=== PATIENT | female | born 1955 | race Caucasian/White ===

== ENCOUNTER 2020-10-09 12:37 | Outpatient (REF) | payer MEDICARE, SELFPAY ==
--- NOTE | ~2020-10-09 | MM_ITS ---
EXAMINATION: MM SCREENING DIGITAL BREAST TOMOSYNTHESIS, BILATERAL CLINICAL INFORMATION: Screening. Asymptomatic. The lifetime risk of breast cancer based on the Tyrer-Cuzick Model is 4%. COMPARISON: Mammography: 05/29/2015 TECHNIQUE: Digital breast tomosynthesis is performed in both the craniocaudal and mediolateral oblique views along with computer-aided detection (CAD). Synthesized 2D images are generated from the tomosynthesis. Topical powder suspected by laboratory technologist at time of imaging. Patient asked to wash breasts at office prior to imaging. FINDINGS: There are scattered areas of fibroglandular density (ACR BI-RADS breast composition Category b). The parenchymal pattern is unremarkable. There is no interval mass or architectural abnormality or developing density. The axilla and skin contours are unremarkable. There are multiple punctate densities overlying the skin greatest posterior inferior left breast. These are consistent with the topical powder suspected at time of imaging. The artifacts are superficial, confirmed on the tomography sections. There are no abnormal calcifications seen in either breast. MM/MM tomosynthesis screening BI IMPRESSION: 1. No mammographic evidence of malignancy. 2. Punctate artifacts from topical outer bilateral breasts, more numerous on left. ASSESSMENT: BI-RADS 2: Benign RECOMMENDATION: Routine annual mammography screening. This patient's information was entered into a reminder system with a target due date for their next mammogram.
--- NOTE | ~2020-10-09 | MM_ITS ---
EXAMINATION: BONE DENSITOMETRY CLINICAL INDICATION: Postmenopausal. Rule out osteoporosis. COMPARISON: Previous BD dated 09/12/2015 and baseline BD dated 08/27/2006. TECHNIQUE: Using a [employer] DXA System (software version: 13.1) manufactured by [employer], dual-energy x-ray absorptiometry was performed of the lumbar spine and left hip. The images are of good technical quality. Summary results are attached. FINDINGS: AP SPINE L1-L4: Current: BMD 0.986 g/cm2, Z-score 0.1, T-score -1.6, osteopenia, 8.1% increase from previous, 2.3% decrease from baseline (<5% change is not significant). Prior: BMD 0.912 g/cm2. Baseline: BMD 1.009 g/cm2. LEFT FEMUR, NECK: Current: BMD 0.805 g/cm2, Z-score 0.0, T-score -1.7, osteopenia. Prior: BMD 0.780 g/cm2. Baseline: BMD 0.840 g/cm2. LEFT FEMUR, TOTAL: Current: BMD 0.856 g/cm2, Z-score 0.2, T-score -1.2, osteopenia, 0.7% increase from previous, 4.6% decrease from baseline (<5% change is not significant). Prior: BMD 0.850 g/cm2. Baseline: BMD 0.897 g/cm2. IDENTIFIED RISK FACTORS: None listed. HISTORY OF FRACTURE: None listed. MEDICATIONS: Calcium. MM/XR DEXA axial skeleton IMPRESSION: 1. DIAGNOSIS: Osteopenia based on the lowest T-score value of -1.7 in the femoral neck applying World Health Organization criteria. 2. 10-YEAR FRACTURE RISK PREDICTION, FRAX: Major osteoporotic fracture (clinical spine, forearm, hip or shoulder) 10.1%. Hip fracture 1.4%. 3. Treatment Recommendations: NOF guidelines recommend consideration for treatment in postmenopausal women and men age 50 and older presenting with the following: -A hip or vertebral (clinical or morphometric) fracture. -T-score less than or equal to -2.5 at the femoral neck or spine after appropriate evaluation to exclude secondary causes. -Low bone mass at the hip or spine and a 10-year fracture probability by FRAX of greater than or equal to 3% for hip fracture or greater than or equal to 20% for major osteoporotic fracture based on the [place] adapted WHO algorithm. 4. Other Recommendations: All treatment decisions require clinical judgment and consideration of individual patient factors, including patient preferences, comorbidities, previous drug use, risk factors not captured in the FRAX model (e.g. frailty, falls, vitamin D deficiency, increased bone turnover, interval significant decline in bone density) and possible under or overestimation of fracture risk by FRAX. Additional medical evaluation for secondary cause of low bone mineral density may be appropriate. FUTURE SCAN RECOMMENDATION: People with diagnosed cases of osteoporosis or at high risk for fracture should have regular bone mineral density tests. For patients eligible for Medicare, routine testing is allowed once every 2 years. The testing frequency can be increased to one year for patients who have rapidly progressing disease, those who are receiving or discontinuing medical therapy to restore bone mass, or have additional risk factors.
== END 2020-10-09 12:38 | disposition home or self-care (01) ==
LOC: HO.MAMMO 12:37
PROVIDERS: PCP Internal Medicine; Visit Provider Internal Medicine
DX: Z12.31 Encounter for screening mammogram for malignant neoplasm of breast (principal); Z13.820 Encounter for screening for osteoporosis; Z78.0 Asymptomatic menopausal state
CPT/HCPCS: 77063; 77067; 77080

== ENCOUNTER 2021-08-05 11:13 | Outpatient (REF) | payer MEDICARE, SELFPAY ==
--- NOTE | ~2021-08-05 | XR_ITS ---
EXAMINATION: XR CERVICAL SPINE CLINICAL INFORMATION: Pain base of neck. COMPARISON: None TECHNIQUE: 3 views of the cervical spine were obtained. FINDINGS: There is reversal cervical lordosis. Vertebral bodies are normal in height. There is no vertebral compression, prevertebral soft tissue swelling, or destructive process. There are degenerative disc changes at C5-C6 with disc narrowing and endplate sclerosis and vertebral spurring. There is borderline retrolisthesis at this level likely related to the degenerative changes. There is no perched facet. No cervical rib. There are lesser degenerative disc changes at C4-C5. The odontoid appears intact. XR/XR cervical spine 3V IMPRESSION: Degenerative disc changes greatest at C5-C6 with associated vertebral spurring and borderline retrolisthesis. Reversal cervical lordosis.
== END 2021-08-05 11:14 | disposition home or self-care (01) ==
LOC: HO.HMGCX 11:13
PROVIDERS: PCP Internal Medicine; Visit Provider Internal Medicine
DX: M54.2 Cervicalgia (principal)
CPT/HCPCS: 72040

== ENCOUNTER 2023-10-06 09:55 | Outpatient (REF) | payer MEDICARE, SELFPAY ==
--- NOTE | ~2023-10-06 | MM_ITS ---
EXAMINATION: MM SCREENING DIGITAL BREAST TOMOSYNTHESIS, BILATERAL CLINICAL INFORMATION: Screening. Asymptomatic. COMPARISON: Mammography: This study is compared with prior exams dating back to 2015. TECHNIQUE: Digital breast tomosynthesis is performed in both the craniocaudal and mediolateral oblique views along with computer-aided detection (CAD). Synthesized 2D images are generated from the tomosynthesis. FINDINGS: There are scattered areas of fibroglandular density (ACR BI-RADS breast composition Category b). There are no significant masses, abnormal calcifications, or other abnormalities. MM/MM tomosynthesis screening BI IMPRESSION: No mammographic evidence of malignancy. ASSESSMENT: BI-RADS BI-RADS 1 - Negative RECOMMENDATION: Routine annual mammography screening. 1 year F/U This examination should not preclude the clinical evaluation of a suspicious palpable abnormality. This patient's information was entered into a reminder system with a target due date for their next mammogram.
--- NOTE | ~2023-10-06 | MM_ITS ---
EXAMINATION: BONE DENSITOMETRY CLINICAL INDICATION: Post menopausal. COMPARISON: Previous BD dated 10/09/2020 and baseline BD dated 08/27/2006. TECHNIQUE: Using a [employer] DXA System (software version: 13.1) manufactured by [employer], dual-energy x-ray absorptiometry was performed of the lumbar spine and left hip. The images are of good technical quality. Summary results are attached. FINDINGS: AP SPINE L1-L4: Current: BMD 0.952 g/cm2, Z-score -0.1, T-score -1.9, osteopenia, 3.4% decrease from previous, 5.6% decrease from baseline (<5% change is not significant). Prior: BMD 0.986 g/cm2. Baseline: BMD 1.009 g/cm2. LEFT FEMUR, NECK: Current: BMD 0.844 g/cm2, Z-score 0.4, T-score -1.4, osteopenia. Prior: BMD 0.805 g/cm2. Baseline: BMD 0.840 g/cm2. LEFT FEMUR, TOTAL: Current: BMD 0.887 g/cm2, Z-score 0.6, T-score -1.0, normal, 3.6% increase from previous, 1.1% decrease from baseline (<5% change is not significant). Prior: BMD 0.856 g/cm2. Baseline: BMD 0.897 g/cm2. IDENTIFIED RISK FACTORS: Menopause. HISTORY OF FRACTURE: None listed. MEDICATIONS: Calcium supplement and/or multivitamin. MM/XR DEXA axial skeleton IMPRESSION: 1. DIAGNOSIS: Osteopenia based on the lowest T-score value of -1.9 in the lumbar spine applying World Health Organization criteria. 2. 10-YEAR FRACTURE RISK PREDICTION, FRAX: Major osteoporotic fracture (clinical spine, forearm, hip or shoulder) 9.9%. Hip fracture 1.4%. 3. Treatment Recommendations: NOF guidelines recommend consideration for treatment in postmenopausal women and men age 50 and older presenting with the following: -A hip or vertebral (clinical or morphometric) fracture. -T-score less than or equal to -2.5 at the femoral neck or spine after appropriate evaluation to exclude secondary causes. -Low bone mass at the hip or spine and a 10-year fracture probability by FRAX of greater than or equal to 3% for hip fracture or greater than or equal to 20% for major osteoporotic fracture based on the [place] adapted WHO algorithm. 4. Other Recommendations: All treatment decisions require clinical judgment and consideration of individual patient factors, including patient preferences, comorbidities, previous drug use, risk factors not captured in the FRAX model (e.g. frailty, falls, vitamin D deficiency, increased bone turnover, interval significant decline in bone density) and possible under or overestimation of fracture risk by FRAX. Additional medical evaluation for secondary cause of low bone mineral density may be appropriate. FUTURE SCAN RECOMMENDATION: People with diagnosed cases of osteoporosis or at high risk for fracture should have regular bone mineral density tests. For patients eligible for Medicare, routine testing is allowed once every 2 years. The testing frequency can be increased to one year for patients who have rapidly progressing disease, those who are receiving or discontinuing medical therapy to restore bone mass, or have additional risk factors.
== END 2023-10-06 09:56 | disposition home or self-care (01) ==
LOC: HO.MAMMO 09:55
PROVIDERS: PCP Internal Medicine; Visit Provider Internal Medicine
DX: Z12.31 Encounter for screening mammogram for malignant neoplasm of breast (principal); Z13.820 Encounter for screening for osteoporosis; Z78.0 Asymptomatic menopausal state
CPT/HCPCS: 77063; 77067; 77080

== ENCOUNTER → 2023-10-06 10:30 | Outpatient (BNV) | payer MEDICARE, SELFPAY | PROVIDERS: PCP Internal Medicine; Visit Provider Radiology Diagnostic Radiology | DX: Z12.31 Encounter for screening mammogram for malignant neoplasm of breast (principal) | CPT/HCPCS: 77063; 77067 ==

== ENCOUNTER 2024-03-27 13:21 | Outpatient (REF) | payer MEDICARE, SELFPAY ==
--- NOTE | ~2024-03-27 | XR_ITS ---
EXAMINATION: XR ABDOMEN COMPLETE CLINICAL INDICATION: Constipation COMPARISON: None available. TECHNIQUE: 2 views of the abdomen. FINDINGS: The bowel gas pattern is normal with no evidence of ileus or obstruction. No unusual soft tissue calcifications are noted. The bones are unremarkable. XR/XR abdomen min 2V IMPRESSION: Unremarkable examination. Electronically signed by: Clau Vernon MD 03/28/2024 07:57 PM EDT RP
== END 2024-03-27 13:22 | disposition home or self-care (01) ==
LOC: HO.HMGCX 13:21
PROVIDERS: PCP Internal Medicine; Visit Provider Internal Medicine
DX: R10.9 Unspecified abdominal pain (principal); K59.00 Constipation, unspecified
CPT/HCPCS: 74019

== ENCOUNTER 2024-12-04 07:16 | Day surgery (SDC) | payer MEDICARE, SELFPAY ==
[2024-11-30 13:54] VITALS: BMI 24.9
--- NOTE | 2024-12-04 07:28 | P.CONAN_ITS ---
[facility] Past Medical History Medical History Elevated cholesterol Surgical History Surgical History Surgical history unknown History of Problems with Anesthesia: No Social History Social History Household Members: Spouse Patient Tobacco Use Status: Former Tobacco user Meds Allergies Allergy/AdvReac Type Severity Reaction Status Date / Time No Known Allergies Allergy Verified 12/04/24 07:35 Active Medications: Current Medications Sodium Biphosphate/Sodium Phosphate (Sodium Phosphate,[place]ayette-Dibasic 133 Ml Enema) 133 ml AK ONCE PRN PRN Reason: Poor Colonoscopy Prep Results Home Medications ?Medication ?Instructions ?Recorded ?Confirmed ?Last Taken ?Type atorvastatin 40 mg tablet 40 mg PO DAILY 11/30/24 11/30/24 Unknown History calcium carbonate 600 mg PO DAILY 11/30/24 11/30/24 Unknown History lorazepam 0.5 mg tablet 0.5 mg PO DAILY PRN Anxiety 11/30/24 11/30/24 Unknown History polyethylene glycol 3350 17 gram 17 g PO DAILY 11/30/24 11/30/24 Unknown History oral powder packet (Miralax) Exam Height,Weight and Vital Signs: Height 5 ft 2 in Weight 61.689 kg Airway Mallampati Class: II TM Dist: >3cm Neck ROM: Full Denture: Upper Loose/Missing/Broken Teeth: Yes and Upper Heart: RRR Lungs: CTA Assessment and Plan Assessment Anesthesia Assessment: Anesthesia Plan Discussed and Chart Reviewed Final Anesthetic Review History of Problems with Anesthesia: No NPO: Yes ASA Class: II Final Preanesthetic Review: Meds/Allgs Chart Reviewed, Consent Obtained/Reviewed and Anes Risks/Benef Reviewed Patient Risk: Low Procedure Risk: Low Anesthetic Plan Anesthetic Plan: MAC: Disposition: Standard PACU
[2024-12-04 07:35] VITALS: BMI 24.6
[2024-12-04] MEDS: Lactated Ringers 1,000 ML 80 ML IVCONT (07:41)
[2024-12-04 07:43] VITALS: BP 144/81; PULSE 83; RESP 18; TEMP 36.8; O2SAT 98
[2024-12-04 09:30] VITALS: BP 83/60; PULSE 62; RESP 18; TEMP 36.4; O2SAT 98
--- NOTE | 2024-12-04 09:34 | PM.OP ---
Brief Operative Note Date of Service: 12/04/24 Pre-op diagnosis: Screening Post-op diagnosis: other (Rectal polyp) Procedure: Colonoscopy to the cecum and TI with cold snare polypectomy x 1 Surgeon: Cedrick Brown MD Anesthesia: MAC Was an Health Insurance Sales Agent used for this Procedure?: No Estimated blood loss (mL): 2.0 Pathology: other (A. Rectal polyp) Condition: stable Disposition: PACU
[2024-12-04 09:35] VITALS: BP 86/52
[2024-12-04 09:40] VITALS: BP 87/54
[2024-12-04 09:45] VITALS: BP 97/57; PULSE 62; RESP 18; TEMP 36.4; O2SAT 96
[2024-12-04 10:00] VITALS: BP 107/62; PULSE 59; RESP 18; TEMP 36.3; O2SAT 98
--- NOTE | 2024-12-04 10:11 | OP_ITS ---
DATE OF SERVICE: 12/04/2024 SURGEON: Cedrick Brown MD INDICATIONS: The patient presents for evaluation of colorectal cancer screening. Full consent has been obtained from her for this, including risks of bleeding and perforation. PREOPERATIVE DIAGNOSIS: Colorectal cancer screening. POSTOPERATIVE DIAGNOSIS: PROCEDURE PERFORMED: Colonoscopy to the cecum and terminal ileum with cold snare polypectomy x1. ESTIMATED BLOOD LOSS: COMPLICATIONS: ANESTHESIA: Medication used, monitored anesthesia care. ASSISTANTS: SPECIMENS: POSTOPERATIVE DIAGNOSES: Colorectal cancer screening, small rectal polyp, diverticulosis, and internal hemorrhoids. DESCRIPTION OF PROCEDURE: The patient was placed in the left lateral decubitus position. The digital rectal exam revealed no abnormalities. The Olympus video pediatric colonoscope was entered into the rectum and advanced easily to the cecum. Once in the cecum, I did identify normal-appearing cecal pouch with appendiceal orifice and a normal-appearing ileocecal valve. The terminal ileum was cannulated and appeared normal. The scope was withdrawn back in the colon. The entire cecum and ileocecal valve appeared normal. The scope was slowly withdrawn assessing all mucosal surfaces carefully. Preparation was excellent. There was a mild amount of diverticulosis in the ascending and descending colon. There was a mild to moderate amount of diverticulosis in the sigmoid colon. I did not visualize any sign of colitis nor angiodysplasia. The only polyp I visualized was in the rectum. This was approximately 5 or 6 mm in diameter and was removed by cold snare polypectomy and recovered by suction. The polypectomy site appeared clean, without any sign of residual polyp nor bleeding. The scope was retroflexed in the rectum visualizing internal hemorrhoids as well. The scope was straightened and withdrawn from the patient. She tolerated the procedure well and was returned to the recovery area in stable condition. IMPRESSION: 1. Rectal polyp. 2. Diverticulosis. 3. Internal hemorrhoids. PLAN: The results of the pathology will be checked. Given the minimal findings and her age, I do not think she would need any further colonoscopies even if the polyp is a tubular adenoma. She will otherwise see me on a p.r.n. basis. She was advised to continue her current regimen of Metamucil and MiraLAX in regard to the constipation. Cedrick Brown MD RMW/NAKIAL / [id number]
== END 2024-12-04 10:21 | disposition home or self-care (01) ==
PROVIDERS: PCP Internal Medicine; Visit Provider Internal Medicine
PROC: 0DJD8ZZ Inspection of Lower Intestinal Tract, Via Natural or Artificial Opening Endoscopic (ICD-10-PCS; CPT 45378; principal; 2024-12-04 08:30)
DX: Z12.11 Encounter for screening for malignant neoplasm of colon (principal); K62.1 Rectal polyp; K57.30 Diverticulosis of large intestine without perforation or abscess without bleeding; K64.8 Other hemorrhoids; K59.00 Constipation, unspecified; E78.00 Pure hypercholesterolemia, unspecified; Z87.891 Personal history of nicotine dependence; Z79.02 Long term (current) use of antithrombotics/antiplatelets; Z79.899 Other long term (current) drug therapy
CPT/HCPCS: 45385; 88305; J2003; J2704

== ENCOUNTER 2025-02-13 17:25 | Outpatient (AMB) | payer MEDICARE, SELFPAY ==
--- OUTSIDE RECORDS SUMMARY | 2025-02-13 17:27 | XMS_ITS | Patient Health Record ---
Author Organization [facility] Address [address] [place] [address] Care Team Providers Care Rv Detailer Name Role Phone William Brandt MD Primary Care Provider UnavailManolo Smith Unavailable [phone] Reason For Referral No Information Medications Medication SIG (Take, Route, Frequency, Duration) Notes Start Date End Date Status Multivitamin Active Night Splint AFO - L1930 as directed 04/30/2021 Active Caltrate 600+D Activ e Social History Tobacco Use: Social History Observation Description Date Details (start date - stop date) Former Smoker NA - NA Tobacco Use/Smoking Question Answer Notes Are you a: former smoker Additional Findings: Tobacco Non-User Current no n-smoker Alcohol Screen Question Answer Notes Did you have a drink containing alcohol in the p ast year? Yes Points 0 Interpretation Negative Tobacco use other than smoking: Question Answer Notes Are you an other tobacco user? No Plan Of Treatment Pending Test Test Name Order Date X ray : Foot, left 3V 01/15/2020 X ray : Foot, right 3V 01/15/2020 Insurance Providers Payer Name Payer Address Payer Phone Subscriber Number Group Number Insured Name Patient Relationship to Insured Coverage Start Date Coverage End Date [employer] [place] [employer] Advantage [address] [place] [address] [id number] Hailee Hernandez Self - patient is the insured Medical (General) History Medical History History ICD Code Broken bones Psoriasis/eczema Reflux ( GERD) sinusitis Chicken pox Seasonal allergies Surgical History Surgery Date(Month/Year)
--- NOTE | 2025-02-14 06:40 | A.OFFPC_ITS ---
Intake Visit Reasons: Establish Care Allergies No Known Allergies Allergy (Verified 02/14/25 06:41) Medication List - Last Reconciled 02/14/25 by Christopher Smith MD atorvastatin 40 mg PO DAILY calcium carbonate 600 mg PO DAILY lorazepam 0.5 mg PO DAILY PRN polyethylene glycol 3350 (Miralax) 17 grams PO DAILY HPI Establish Care HPI Details 69-year-old female wishes to discuss her medical health via telehealth. Patient is transferring her care from Dr. Brandt. She has history of high cholesterol and anxiety. Her 's sickness is contributing significantly to her anxiety. Patient takes a statin and occasional use of lorazepam. Able to function and do all activities of daily living. [facility] Medical History (Updated 02/14/25 @ 06:38 by Christopher Smith MD) Constipation Anxiety Elevated cholesterol Surgical History (Updated 02/14/25 @ 06:43 by Christopher Smith MD) History of colonoscopy (~12/04/24) Surgical history unknown Social History Household Members: Spouse Patient Tobacco Use Status: Former Tobacco user Questionnaire AUDIT C Alcohol Use Questionnaire (AUDIT-C) 1. How often do you have a drink containing alcohol?: Monthly or less 2. How many drinks containing alcohol do you have on a typical day when you are drinking?: 1 or 2 3. How often do you have six or more drinks on one occasion?: Never Total Score: 1 Physical exam (Primary Care) Tobacco/Smoking Status: Tobacco use Status Patient Tobacco Use Status Former Tobacco user 12/04/24 09:34 Telehealth Telehealth Telehealth Platform: Playbasis Location of provider rendering services: practice address Location of patient: address on file Patient Identification confirmed using: Name, : Yes Telehealth method: voice only Patient verbally consented to treatment: Yes Patient verbally consented to billing insurance company: Yes Patient informed of any privacy concerns related to visit: Yes Minutes spent on Phone/Video with Pt.: 15 Coding Level of Care Code Tele New Pt Level 4 (04393) Complex EM visit Add On G2211 Diagnoses Elevated cholesterol E78.00 Assessment & Plan Assessment & Plan (1) Elevated cholesterol: Code(s): E78.00 - Pure hypercholesterolemia, unspecified Category: Medical Plan: Fasting blood work has been ordered. Will call with the results. Orders: Orders Complete Blood Count no Diff Today E78.00 - Pure hypercholesterolemia, unspecified UA and rflx microscopic Today E78.00 - Pure hypercholesterolemia, unspecified Basic Metabolic Panel Today E78.00 - Pure hypercholesterolemia, unspecified Lipid Panel Today E78.00 - Pure hypercholesterolemia, unspecified Liver Panel Today E78.00 - Pure hypercholesterolemia, unspecified Thyroid Stimulating Hormone Today E78.00 - Pure hypercholesterolemia, unspecified
== END 2025-02-13 19:00 | disposition home or self-care (01) ==
LOC: HO.HMCSH 17:25
PROVIDERS: PCP Internal Medicine; Visit Provider Internal Medicine
DX: E78.00 Pure hypercholesterolemia, unspecified (principal)

== ENCOUNTER 2025-02-14 08:44 | Outpatient (REF) | payer MEDICARE, SELFPAY ==
--- OUTSIDE RECORDS SUMMARY | 2024-12-04 04:30 | XMS_ITS ---
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 ; Diverticulosis of large intestine without perforation or abscess without bleeding K57.30 and Other hemorrhoids K64.8 Assessments Encounter Date Diagnosis (ICD Code) Assessment Notes Treatment Notes Treatment Clinical Notes Section Notes 12/04/2024 Colon cancer screening (ICD-10 - Z12.11) 12/04/2024 Benign neoplasm of rectum (ICD-10 - D12.8) 12/04/2024 Diverticulosis of large intestine without perforation or abscess without bleeding (ICD-10 - K57.30) 12/04/2024 Other hemorrhoids (ICD-10 - K64.8) Plan Of Treatment No Information Progress Notes * KRISTEN FINKADOB:1955 ([age] yo F)Acc No.[id number]:12/04/2024 COLON WITH MAC Patient: ARAM DURAN Provider: Jimmie Brown MD :1955 A ge:69 Y S ex:Female Date:12/04/2024 Address[address] [id number] Pcp:William Brandt (RETIRED) MD Subjective: * Chief Complaints: * 1 . Screening. * Medical History: Objective: * Vitals: Assessment: * Assessment: 1. C olon cancer screening - Z12.11 (Primary) 2 . B enign neoplasm of rectum - D12.8 3 . D iverticulosis of large intestine without perforation or abscess without bleeding - K57.30 4 . O ther hemorrhoids - K64.8 Plan: * Treatment: * Procedure Codes: 4 5385 LESION REMOVAL COLONOSCOPY, Modifiers: PT * * The named appointment provid er may or may not be the originator of this progress note, and it is not deemed complete until electronically signed by the appointment provider. Sign off status: Pending * Provider: Jimmie Brown MD Date: 0 12/04/2024 Generated for Sonja molina/Miri/Hernandezitting on: 0 02/14/2025 08:58 AM EDT
--- OUTSIDE RECORDS SUMMARY | 2025-02-14 08:59 | XMS_ITS | Patient Health Record ---
Author Organization [facility] Address [address] [place] [address] Care Team Providers Care Refinery Operator Crude Unit Name Role Phone William Brandt MD Primary Care Provider UnavailManolo Smith Unavailable [phone] Reason For Referral No Information Medications Medication [...] [address] [place] [address] [id number] Hailee Hernandez Self - patient is the insured Medical (General) History Medical History History ICD Code Broken bones Psoriasis/eczema Reflux ( GERD) sinusitis Chicken pox Seasonal allergies Surgical History Surgery Date(Month/Year)
[2025-02-14 10:19] LABS: Hematocrit 42.2 % (37.0-47.0); Hemoglobin 14.2 g/dl (12.0-16.0); Mean Corpuscular HGB Conc 33.6 g/dl (31.0-35.0); Mean Corpuscular Hemoglobin 31.5 pg (27.0-33.0); Mean Corpuscular Volume 93.6 fL (80.0-98.0); NRBC Abs Auto 0.000 X10*3/uL (0.0-0.012); NRBC Pct Auto 0.0 /100WBC (0.0-0.2); Platelet Count 287 X10*3/uL (160-400); Red Blood Count 4.51 X10*6/uL (4.20-5.50); White Blood Count 6.1 X10*3/uL (4.8-10.8)
[2025-02-14 10:46] LABS: Appearance Urine Clear; Glucose Urine UA Negative (Negative); PH 6.5 (5.0-9.0); Specific Gravity - Urine 1.015 (1.005-1.025); UMIC TRIGGER UA YES
[2025-02-14 10:51] LABS: Alanine Aminotransferase 30 U/L (0-31); Albumin Level 4.1 g/dL (3.5-5.0); Alkaline Phosphatase 81 U/L (39-117); Anion Gap 9 (12-20); Aspartate Amino Transferase 30 U/L (5-31); Blood Urea Nitrogen 18 mg/dL (9-16); Calcium 9.1 mg/dL (8.4-10.2); Carbon Dioxide 28 mmol/L (22-29); Chloride 106 mmol/L (96-108); Cholesterol 195 mg/dL (<200); Estimated Glomerular Filt Rate > 60; HDL Cholesterol 63 mg/dL (>40); Potassium 4.0 mmol/L (3.3-5.1); Sodium 139 mmol/L (135-145); Total Protein 6.9 g/dL (6.5-8.0); Triglycerides 83 mg/dL (<150)
[2025-02-14 10:55] LABS: Thyroid Stimulating Hormone 3.53 uIU/mL (0.32-4.0)
== END 2025-02-14 08:45 | disposition home or self-care (01) ==
LOC: HO.HMGCLDS 08:44
PROVIDERS: PCP Internal Medicine; Visit Provider Internal Medicine
DX: E78.00 Pure hypercholesterolemia, unspecified (principal)
CPT/HCPCS: 36415; 80048; 80061; 80076; 81001; 84443; 85027

== ENCOUNTER 2025-06-04 14:07 | Outpatient (AMB) | payer MEDICARE, SELFPAY ==
--- NOTE | 2025-06-04 14:11 | A.OFFPC_ITS ---
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 Accompanied by: Self / Same As Patient Allergies No Known Allergies Allergy (Verified 06/04/25 14:14) Tobacco use date assessed: 06/04/25 Fall risk assessment: No Falls in past year Last assessed Fall Risk: 06/04/25 Dental Screening Dental Screen Date: 06/04/25 Did you have a dental visit in the last 12 months?: Yes Did you have a dental problem in the last 6 months where you did not have access to dental care?: No Was dental information given to patient?: Patient has dentist (upper dentures) HPI HPI Comments History of Present Illness Details History of Present Illness - The patient is a 69-year-old female pr esenting for a follow-up visit, primarily reporting significant stress and frustration related to her role as a caregiver for her . - Her has suffered from chronic pain for seven years, and a recent surgical consultation determined there are no operative options for him. - Her 's medical history includes cirrhosis of the liver, stage 3 kidney disease, and diabetes. - The patient's stress has worsened rece ntly since her 's oxycodone prescription was reduced from four to three pills per day, leading to increased pain and distress for him. - This situation causes her to experienc e a knot in my stomach, and she reports poor sleep as a result of the ongoing stress. - The patient has a prescription for keith azepam, which was filled in January, and she takes half a pill only when she feels significantly stressed. - She takes a statin for hyperlipidemia. - She declines a referral to a therapist or daily medication for her stress. - For health maintenance, she is due for a mammogram and acknowledges that a bone density scan is usually performed at the same time. - She reports having had a colonoscopy a nd bone density scan previously. - Her last blood work was in January and wa s reportedly normal. Social History - The patient is the primary caregiver f or her , who has multiple chronic conditions and severe chronic pain, which is a significant source of stress, frustration, and sleep disruption for her. - She feels they are stuck in the house due to his condition. - For exercise, she tries to walk outsid e for about two miles, which provides her with some relief. - Reports ability to drive at night. Results - Labs: Blood work performed in January was reportedly normal. [facility] Medical History Constipation Anxiety Elevated cholesterol Surgical History History of colonoscopy (~12/04/24) Surgical history unknown Family History (Updated 06/04/25 @ 14:23 by TIM Blancas) Father Cancer Mother No problems noted. Social History (Updated 06/04/25 @ 14:23 by TIM Blancas) Household Members: Spouse Housing: House Alcohol intake: current Alcohol intake frequency: a few times a week Alcohol type: beer Patient Tobacco Use Status: Former Tobacco user service: No Current occupational status: retired Cognitive needs: No Hearing needs: No Vision needs: Yes (reading glasses) Questionnaire PHQ-9 Over the last 2 weeks, how often have you been bothered by any of the following problems? 1. Little interest or pleasure in doing things: not at all 2. Feeling down, depressed, or hopeless: not at all 3. Trouble falling or staying asleep, or sleeping too much: not at all 4. Feeling tired or having little energy: not at all 5. Poor appetite or overeating: not at all 6. Feeling bad about yourself - or that you are a failure or have let yourself or your family down: not at all 7. Trouble concentrating on things, such as reading the newspaper or watching television: not at all 8. Moving or speaking so slowly that other people could have noticed. Or the opposite - being so fidgety or restless that you have been moving around a lot more than usual: not at all 9. Thoughts that you would be better off or of hurting yourself in some way: not at all Total score: 0 Source: Developed by Drs. Cedrick Lo, Anayeli Appiah, Jorge Altman and colleagues, with an educational jon from [employer]. Thrive Questionnaire Date Thrive assessed: 06/04/25 I am a: Patient What is your living situation today?: I have a steady place to live Within the past 12 months, did the food you bought not last and you didn't have the money to get more?: Never true Within the past 12 months, did you worry whether your food would run out before you got money to buy more?: Never true Do you have trouble paying for medicines?: No Do you have trouble getting transportation to medical appointments?: No Do you have trouble paying your heating and electricity bill?: No Do you have trouble taking care of your child, family member or friend?: No Do you have trouble with day-to-day activities such as bathing, preparing meals, shopping, managing finances, etc.?: No Are you currently unemployed and looking for a job?: No Are you interested in more education?: No Please select the resources that you would like help with: None THRIVE Score: 0 AUDIT C Alcohol Use Questionnaire (AUDIT-C) 1. How often do you have a drink containing alcohol?: 2-3 times a week 2. How many drinks containing alcohol do you have on a typical day when you are drinking?: 1 or 2 3. How often do you have six or more drinks on one occasion?: Never Total Score: 3 KAITLIN-7 AMB Questionnaire KAITLIN-7 Date KAITLIN - 7 assessed: 06/04/25 Feeling nervous, anxious, or on edge: 0 = Not at all Not being able to stop or control worryin = Not at all Worrying too much about different things: 0 = Not at all Trouble relaxin = Not at all Being so restless that it is hard to sit still: 0 = Not at all Becoming easily annoyed or irritable: 0 = Not at all Feeling afraid as if something awful might happen: 0 = Not at all Total KAITLIN-7 score (0-4 normal; 5-9 mild; 10-14 moderate; 15-21 severe): 0 Source: Developed by Drs. Cedrick Lo, Anayeli Appiah, Jorge Altman and colleagues, with an educational jon from [employer]. Review of Systems Narrative Review of Systems - Psychiatric: Reports significant stress, frustration, and feeling overwhelmed due to her 's health. Denies wanting to see a therapist. - Neurological: Reports poor sleep quality. - Gastrointestinal: Reports a knot in my stomach when feeling stressed. - Eyes: Reports good vision. - Constitutional: Reports feeling pretty much healthy. Physical exam (Primary Care) Vital Signs: Last Vital Signs Temp 98.7 F 06/04/25 14:14 Pulse 78 06/04/25 14:14 Resp 14 06/04/25 14:14 BP 128/80 06/04/25 14:14 Pulse Ox 98 06/04/25 14:14 BMI result Body Mass Index 25.2 Tobacco/Smoking Status: Tobacco use Status Tobacco use date assessed 06/04/25 06/04/25 14:25 Patient Tobacco Use Status Former Tobacco user 06/04/25 14:25 PHQ-9: PHQ-9 Score PHQ-9: Total score 0 06/04/25 14:25 Thrive Assessment: Date of Thrive Assessment Date Thrive assessed 06/04/25 06/04/25 14:25 Narrative Physical Exam General: Cooperative and healthy appearing Nutritional Appearance: Well nourished Orientation/consciousness: Patient oriented x3 Limitations: No limitations Head: Normal to inspection General: Appearance normal, both eyes and all related structures Neck: Normal visual inspection Chest: Normal palpation of entire chest wall Respiratory: Normal respiratory effort Neurology: Patient oriented x3 Office Procedures Flu Questionnaire Does the patient have a severe egg allergy?: No Does the patient have severe life threatening allergies?: No Does the patient have a fever or illness today?: No Has the patient ever had Guillain-[place] Syndrome?: No Has the patient ever had any past reaction to a flu shot?: No Immunizations Fluarix [id number] (PF) 45 mcg (15 mcg x 3)/0.5 mL IM syringe Performing Provider: Christopher Smith MD [facility] Documented (not given) by: TIM Blancas on 06/04/25 14:26 Reason Not Given: Patient Refused Coding Level of Care Code Est Pt Level 4 (56086) Complex EM visit Add On G2211 Diagnoses Elevated cholesterol E78.00 Assessment & Plan Assessment & Plan (1) Elevated cholesterol: Code(s): E78.00 - Pure hypercholesterolemia, unspecified Category: Medical Plan: History of Present Illness - The patient is a 69-year-old female presenting for a follow-up visit, primarily reporting significant stress and frustration related to her role as a caregiver for her . - Her has suffered from chronic pain for seven years, and a recent surgical consultation determined there are no operative options for him. - Her 's medical history includes cirrhosis of the liver, stage 3 kidney disease, and diabetes. - The patient's stress has worsened recently since her 's oxycodone prescription was reduced from four to three pills per day, leading to increased pain and distress for him. - This situation causes her to experience a knot in my stomach, and she reports poor sleep as a result of the ongoing stress. - The patient has a prescription for lorazepam, which was filled in January, and she takes half a pill only when she feels significantly stressed. - She takes a statin for hyperlipidemia. - She declines a referral to a therapist or daily medication for her stress. - For health maintenance, she is due for a mammogram and acknowledges that a bone density scan is usually performed at the same time. - She reports having had a colonoscopy and bone density scan previously. - Her last blood work was in January and was reportedly normal. Social History - The patient is the primary caregiver for her , who has multiple chronic conditions and severe chronic pain, which is a significant source of stress, frustration, and sleep disruption for her. - She feels they are stuck in the house due to his condition. - For exercise, she tries to walk outside for about two miles, which provides her with some relief. - Reports ability to drive at night. Review of Systems - Psychiatric: Reports significant stress, frustration, and feeling overwhelmed due to her 's health. Denies wanting to see a therapist. - Neurological: Reports poor sleep quality. - Gastrointestinal: Reports a knot in my stomach when feeling stressed. - Eyes: Reports good vision. - Constitutional: Reports feeling pretty much healthy. Physical Exam General: Cooperative and healthy appearing Nutritional Appearance: Well nourished Orientation/consciousness: Patient oriented x3 Limitations: No limitations Head: Normal to inspection General: Appearance normal, both eyes and all related structures Neck: Normal visual inspection Chest: Normal palpation of entire chest wall Respiratory: Normal respiratory effort Neurology: Patient oriented x3 Results - Labs: Blood work performed in January was reportedly normal. Plan - An order will be placed for a screening mammogram. - The patient will continue taking her statin medication for hyperlipidemia. - The patient may continue using lorazepam on an as-needed basis for severe stress. - The patient's has an appointment scheduled for June 26, where his pain management will be addressed. Discussion Notes I had a detailed discussion with the patient regarding the significant stress she is experiencing as the primary caregiver for her , who suffers from severe, chronic pain. We acknowledged that her stress has increased since her 's pain medication was reduced. The patient declined a referral to counseling or daily medication for her anxiety at this time, preferring to manage with as-needed lorazepam and exercise. We also discussed preventative health, and I will order a mammogram for her. I reassured her that we will address her 's pain management at his upcoming appointment on June 26. Patient Instructions - Please schedule an appointment for your mammogram. - Continue taking your statin medication for cholesterol as prescribed. - You may take half of a lorazepam pill if you feel very stressed, but do not take it every day. - Continue to get outside and walk for exercise when you can, as it helps you feel better. - We will see your on June 26 to discuss his pain. Plan Plan - An order will be placed for a screening mammogram. - The patient will continue taking her statin medication for hyperlipidemia. - The patient may continue using lorazepam on an as-needed basis for severe stress. - The patient's has an appointment scheduled for June 26, where his pain management will be addressed. Discussion Notes I had a detailed discussion with the patient regarding the significant stress she is experiencing as the primary caregiver for her , who suffers from severe, chronic pain. We acknowledged that her stress has increased since her 's pain medication was reduced. The patient declined a referral to counseling or daily medication for her anxiety at this time, preferring to manage with as-needed lorazepam and exercise. We also discussed preventative health, and I will order a mammogram for her. I reassured her that we will address her 's pain management at his upcoming appointment on June 26. Patient Instructions - Please schedule an appointment for your mammogram. - Continue taking your statin medication for cholesterol as prescribed. - You may take half of a lorazepam pill if you feel very stressed, but do not take it every day. - Continue to get outside and walk for exercise when you can, as it helps you feel better. - We will see your on June 26 to discuss his pain. Orders: Orders Influenza [id number] Immunization Today Z23 - Encounter for immunization MM screening mammo BI Today Z12.31 - Encounter for screening mammogram for malignant neoplasm of breast
[2025-06-04 14:14] VITALS: BP 128/80; PULSE 78; RESP 14; TEMP 37.1; O2SAT 98; BMI 25.2
--- OUTSIDE RECORDS SUMMARY | 2025-06-05 03:51 | XMS_ITS | Patient Health Record ---
Author Organization [facility] Address [address] [place] [address] Care Team Providers Care Bellows Filler Name Role Phone William Brandt MD Primary Care Provider Unavailab césar Manolo Hernandez Unavailable [phone] Reason For Referral No Information Medications Medication [...] [employer] [address] [place] [address] [phone] Hailee Hernandez Self - patient is the insured Medical (General) History Medical History History ICD Code Broken bones Psoriasis/eczema Reflux ( GERD) sinusitis Chicken pox Seasonal allergies Surgical History Surgery Date(Month/Year)
== END 2025-06-04 14:42 | disposition home or self-care (01) ==
LOC: HO.HMCSH 14:07
PROVIDERS: PCP Internal Medicine; Visit Provider Internal Medicine
DX: E78.00 Pure hypercholesterolemia, unspecified (principal); Z23 Encounter for immunization

== ENCOUNTER → 2025-06-04 14:07 | Outpatient (BNVA) | payer MEDICARE, SELFPAY | PROVIDERS: PCP Internal Medicine; Visit Provider Internal Medicine | DX: E78.00 Pure hypercholesterolemia, unspecified (principal); Z63.6 Dependent relative needing care at home; Z28.21 Immunization not carried out because of patient refusal | CPT/HCPCS: 90471; 96127; 99212 ==